=== PATIENT | female | born 1970 | race Caucasian/White ===

== ENCOUNTER 2017-04-05 01:30 | Inpatient (IN) | payer BC ==
[2017-04-05] VITALS (7 sets, daily range): BP systolic 126–153; BP diastolic 76–98
[~2017-04-05] VITALS: Ht 170.2 cm; Wt 86.6 kg
[2017-04-05 02:25] LABS: CHLORIDE SERUM 105 mmol/L (98-107); GFR1 > 60 mL/min; GLUCOSE SERUM 123 mg/dL (74-106); POTASSIUM SERUM 3.6 mmol/L (3.5-5.1); SODIUM SERUM 139 mmol/L (136-145)
[2017-04-05 02:30] LABS: ALBUMIN 3.7 g/dL (3.4-5.0); ALKALINE PHOSPHATASE 74 U/L (46-116); ALT/SGPT 36 U/L (14-59); AST/SGOT 26 U/L (15-37); BILIRUBIN TOTAL 0.52 mg/dL (0.20-1.00); URIC ACID 6.9 mg/dL (2.6-6.0)
[2017-04-05 02:36] LABS: PLATELET COUNT 349 x10^3mcL (130-400); RED CELL DISTRIBUTION WIDTH 13.6 % (11.5-14.5)
[2017-04-05 02:52] LABS: BAND NEUTROPHIL 0 % (0-10); BASOPHIL 0 % (0-2); MONOCYTE 7 % (0-7); PLATELET MORPHOLOGY PLATELETS NORMAL; SEGMENTED NEUTROPHILS 73 % (37-75); rbc morphology (normal/abnorm) NORMAL (NORMAL)
[2017-04-05] MEDS ORDERED: VASCEPA1 GM PO (03:16)
[2017-04-05 04:51] LABS: UA SPECIFIC GRAVITY 1.015 (1.005-1.035); microscopic required? YES; urine erythrocyte TRACE (NEGATIVE)
[2017-04-05 05:01] LABS: AMPHETAMINE QUAL UR NONE DETECTED (NEG <=1000)
[2017-04-05 05:24] LABS: T3 TOTAL 1.35 ng/mL
[2017-04-05 05:46] LABS: FREE T4 1.05 ng/dL (0.76-1.46); FREE THYROXINE INDEX 2.8 ug/dL (1.4-4.5); T4(THYROXINE) 8.2 ug/dL (4.7-13.3)
[2017-04-05 05:59] LABS: MAGNESIUM 1.9 mg/dL (1.8-2.4); PHOSPHOROUS 2.2 mg/dL (2.5-4.9)
[2017-04-05 06:13] LABS: CHOLESTEROL/HDL RATIO 5.2
[2017-04-05 07:43] LABS: CARBON DIOXIDE 25.6 mmol/L (21-32); CHLORIDE SERUM 106 mmol/L (98-107); CREATININE SERUM 0.8 mg/dL (0.6-1.0); GFR1 > 60 mL/min; GLUCOSE SERUM 118 mg/dL (74-106); POTASSIUM SERUM 3.7 mmol/L (3.5-5.1); SODIUM SERUM 139 mmol/L (136-145)
[2017-04-05 07:44] LABS: BASOPHIL % 0.3 % (0-2); PLATELET COUNT 322 x10^3mcL (130-400); RED CELL DISTRIBUTION WIDTH 14.5 % (11.5-14.5)
[2017-04-05] MEDS ORDERED: FLO4 PO (15:25)
[2017-04-05] MEDS ORDERED: NPHOS PO (15:26)
[2017-04-05] MEDS ORDERED: NOR10T PO (17:57)
== END 2017-04-05 18:22 | disposition home or self-care (01) | DRG 694 ==
LOC: ED 01:30 → DU 03:19 → ED 04:07 → DU 04:19
PROVIDERS: Emergency Medicine; Family Medicine
DX: N13.2 Hydronephrosis with renal and ureteral calculous obstruction (principal); E78.00 Pure hypercholesterolemia, unspecified; N28.82 Megaloureter; Z90.49 Acquired absence of other specified parts of digestive tract; K44.9 Diaphragmatic hernia without obstruction or gangrene
CPT/HCPCS: 83880; 84439; J1885; J2270; J2405; J7030; Q0092